=== PATIENT | female | born 1945 | race Caucasian/White ===

== ENCOUNTER → 2024-03-01 | Outpatient (CLI) | payer OTHER, SELFPAY ==
--- NOTE | 2024-03-01 10:20 | RAD_ITS ---
STUDY: X-RAY - THORACIC SPINE REASON FOR EXAM: Female, 78 years old. EVAL [facility]CS LEADS TECHNIQUE: 2 view(s) of the thoracic spine were obtained. COMPARISON: None. FINDINGS: Normal kyphosis of the thoracic spine. Mild dextroscoliosis centered at T5. There is multilevel endplate spondylosis of the thoracic vertebrae. There is multilevel disc space narrowing of the thoracic spine. The soft tissue structures are unremarkable. Dorsal column spinal stimulator in the lower thoracic spine. RAD/Thoracic Spine 2 Views IMPRESSION: Mild dextroscoliosis with degenerative disc disease. Dorsal column spinal stent inflated in the lower thoracic spine. Electronically Signed: Dash Rowland MD at 9:00 EDT ,
== END | disposition home or self-care (01) ==
LOC: RAD 10:08
PROVIDERS: PCP Internal Medicine; Referring Provider Clinical Nurse Specialist Adult Health; Visit Provider Clinical Nurse Specialist Adult Health
DX: Z45.42 Encounter for adjustment and management of neurostimulator (principal)
CPT/HCPCS: 72070